=== PATIENT | male | born 1960 | race African-American/Black ===

== ENCOUNTER 2021-07-30 09:45 | Emergency (ER) | payer OTHER ==
[~2021-07-30] VITALS: Ht 177.8 cm; Wt 56.7 kg
[2021-07-30 09:50] VITALS: BP 120/69
== END 2021-07-30 10:31 | disposition home or self-care (01) ==
LOC: ER 09:45
DX: G56.01 Carpal tunnel syndrome, right upper limb (principal); L72.8 Other follicular cysts of the skin and subcutaneous tissue